=== PATIENT | female | born 1995 | race Caucasian/White ===

== ENCOUNTER 2017-04-01 00:50 | Emergency (ER) | payer BC, OTHER ==
[2017-04-01] MEDS ORDERED: ONDANSETRON INJ 2 MG/ML 2 ML VIAL IM STA (01:02)
[2017-04-01 01:04] VITALS: TEMP 36.5
--- NOTE | 2017-04-01 01:16 | EMERGENCY ROOM VISIT NOTE ---
History Report prepared by Tatyana: Elisa Sweeney Under the Supervision of: Dr. Cookie Najera D.O. First contact with patient: 00:54 Chief Complaint: ALCOHOL OVERDOSE Stated Complaint: ETOH History of Present Illness The patient is a 21 year old female who presents to the Emergency Room with complaints of an episode of alcohol overdose occurring prior to arrival. Per the patient's friends, they went to an apartment libertarian. They report that she is from [facility] and does not drink often. They state that she had a few shots and then they noticed she was vomiting. They report that they let it go for about an hour before bringing her in. They state that they became nervous when it sounded like she was having difficulty breathing. They note that they did go out to eat before drinking. The friend's deny the patient drinking a spiked drink and her falling. They state that they were holding her up the entire time. Patient unable to report own HPI and ROS secondary to alcohol intoxication. Source of History: friend Onset: prior to arrival Position: other (global) Quality: other (overdose) Timing: other (episode) Associated Symptoms: + SOB, + vomiting Review of Systems See HPI for pertinent positives & negatives. A total of 10 systems reviewed and were otherwise negative. Past Medical & Surgical Medical Problems: (1) No Known Active Medical Problems Family History No pertinent family history Social History Alcohol Use: occasionally Marital Status: single Housing Status: lives with roommate Occupation Status: student Current/Historical Medications Unable to Obtain Active Prescriptions or Reported Meds Physical Exam Vital Signs Date Time Temp Pulse Resp B/P (MAP) Pulse Ox O2 Delivery O2 Flow Rate FiO2 04/01/17 05:25 78 18 109/69 99 04/01/17 05:10 119 04/01/17 04:30 89 16 105/43 96 Room Air 04/01/17 04:00 86 13 101/54 96 Room Air 04/01/17 03:30 82 13 106/52 96 Room Air 04/01/17 03:00 82 14 102/50 95 Room Air 04/01/17 02:01 99/54 04/01/17 01:50 87 97 Room Air 04/01/17 01:31 106/66 04/01/17 01:20 81 20 98 Room Air 04/01/17 01:09 Room Air 04/01/17 01:09 Room Air 04/01/17 01:04 36.5 78 18 100/64 96 Room Air 04/01/17 01:02 84 04/01/17 01:01 100/64 04/01/17 01:00 110/59 Physical Exam GENERAL: alert, well appearing, well nourished, no distress, non-toxic, dry heaving on exam, smells of alcohol. EYE EXAM: normal conjunctiva, PERRL and EOM's grossly intact OROPHARYNX: no exudate, no erythema, lips, buccal mucosa, and tongue normal and mucous membranes are moist NECK: supple, no nuchal rigidity, no adenopathy, non-tender LUNGS: Clear to auscultation. Normal chest wall mechanics HEART: no murmurs, S1 normal and S2 normal ABDOMEN: abdomen soft, non-tender, normo-active bowel sounds, no masses, no rebound or guarding. BACK: Back is symmetrical on inspection and there is no deformity, no midline tenderness, no CVA tenderness. SKIN: no rashes and no bruising UPPER EXTREMITIES: upper extremities are grossly normal. No evidence of trauma. LOWER EXTREMITIES: No pitting edema. No evidence of trauma. NEURO EXAM: Moving all four extremities spontaneously. Unable to cooperate for the rest of a neurologic exam. Medical Decision & Procedures Laboratory Results 04/01/17 01:36 Test 04/01/17 01:36 Anion Gap 10.0 mmol/L (3-11) Estimated GFR () 107.4 Estimated GFR (Non- 92.7 BUN/Creatinine Ratio 15.9 (10-20) Calcium Level 8.1 mg/dl (8.5-10.1) Human Chorionic Gonadotropin, Qual NEG (NEG) Ethyl Alcohol mg/dL 204.0 mg/dl (0-3) Laboratory results per my review. ED Course 0056: The patient was evaluated in room B3B. A complete history and physical exam was performed. 0102: Ordered Zofran Inj 4 mg IM. 0355: I reevaluated the patient and she is resting. Her vital signs are stable. 0500: Patient improved here, awake and alert, denies trauma or injury, no current nausea. Patient tolerating sips at bedside. I discussed the findings and the treatment plan with the patient. She verbalizes agreement and understanding. The patient was discharged home. Medical Decision Differential diagnosis: Etiologies such as alcohol intoxication, toxicologic, infection, hypoglycemia, electrolyte abnormalities, cardiac sources, intracerebral event, neurologic, as well as others were entertained. Patient well-appearing here at time of discharge, tolerating by mouth, and related with a steady gait, awake and alert. Patient denies any residual nausea , denies any trauma or injury from last night. I have a low suspicion for any occult traumatic injury, low suspicion for occult infectious etiology, low suspicion for any additional GI pathology. Medication Reconcilliation Current Medication List: was personally reviewed by me Blood Pressure Screening Patient's blood pressure: Normal blood pressure Blood pressure disposition: Did not require urgent referral Impression Primary Impression: Alcohol use with intoxication Scribe Attestation The scribe's documentation has been prepared under my direction and personally reviewed by me in its entirety. I confirm that the note above accurately reflects all work, treatment, procedures, and medical decision making performed by me. Departure Information Dispostion Home / Self-Care Prescriptions Unable to Obtain Active Prescriptions or Reported Meds Referrals No Doctor, Assigned (PCP) Forms HOME CARE DOCUMENTATION FORM, IMPORTANT VISIT INFORMATION Patient Instructions My [facility] Additional Instructions Please do not drink until you're 21. When you do decide to drink please do so responsibly in a safe location. Do not drink and drive. Please sip clear liquids at frequent intervals to stay well-hydrated. If you have any new or concerning symptoms, please return the emergency room.
[2017-04-01 02:19] LABS: BLOOD UREA NITROGEN 14 mg/dl (7-18); CALCIUM 8.1 mg/dl (8.5-10.1); CARBON DIOXIDE 22 mmol/L (21-32); GLUCOSE 101 mg/dl (70-99); POTASSIUM 3.7 mmol/L (3.5-5.1); SODIUM 139 mmol/L (136-145)
[2017-04-01 05:25] VITALS: BP 109/69; PULSE 78; O2SAT 99
== END 2017-04-01 05:25 | disposition home or self-care (01) ==
LOC: C.EDB 00:51
DX: F10.920 Alcohol use, unspecified with intoxication, uncomplicated (principal)